=== PATIENT | female | born 1970 | race Caucasian/White ===

== ENCOUNTER → 2019-05-16 | Outpatient (REF) ==
--- NOTE | 2019-05-16 16:24 | Diagnostic Imaging Report ---
INDICATION: Medical surveillance with exposure. FINDINGS: Lungs are clear. Heart and vessels are normal. No pleural abnormality. IMPRESSION: Negative. Dictated by: Dictated on workstation # [id number]
== END | disposition home or self-care (01) ==
LOC: OCC 14:26
PROVIDERS: ATTEND Family Medicine
CPT/HCPCS: 71045